=== PATIENT | male | born 1945 | race Asian ===

== ENCOUNTER 2017-01-29 10:53 | Inpatient (IN) | payer OTHER ==
[~2017-01-29] VITALS: Ht 175.3 cm; Wt 63.5 kg
[2017-01-29 11:01] VITALS: BP 122/76
[2017-01-29] MEDS ORDERED: LORATADINE5 MG/5 M3 PO (11:03)
[2017-01-29] MEDS ORDERED: BACLOFEN10 MG ORAL (11:03)
[2017-01-29] MEDS ORDERED: SYMBICORT2 PUFF1 INH (11:03)
[2017-01-29] MEDS ORDERED: TAMSULOSIN HCL0.4 MG ORAL (11:03)
[2017-01-29] MEDS ORDERED: BUPROPION HCL150 M3 ORAL (11:03)
[2017-01-29] MEDS ORDERED: OMEPRAZOLE40 M1 ORAL (11:03)
[2017-01-29] MEDS ORDERED: VITAMIN D400 INTLU ORAL (11:03)
[2017-01-29] MEDS ORDERED: MELOXICAM15 MG PO (11:03)
[2017-01-29] MEDS ORDERED: CREON DR 36,001 EACH PO (11:03)
[2017-01-29] MEDS ORDERED: TRAZODONE HCL150 MG ORAL (11:03)
[2017-01-29] MEDS ORDERED: OMEGA 3 FISH O1 EAC1 PO (11:03)
[2017-01-29] MEDS ORDERED: PROSCAR5 MG ORAL (11:03)
[2017-01-29] MEDS ORDERED: VIAGRA100 MG PO (11:03)
[2017-01-29] MEDS ORDERED: Norco 5mg/325mg tab PO ONE (11:15)
--- NOTE | 2017-01-29 12:35 | Diagnostic Imaging Report ---
Indication: PAIN Technique: 3 views of the left ankle Comparison: None Findings: There is a comminuted fracture of the calcaneus. There is soft tissue swelling. No tibial, fibular, or talar fracture demonstrated. Impression: Positive for calcaneal fracture
--- NOTE | 2017-01-29 12:37 | Diagnostic Imaging Report ---
Indication: PAIN, foot pain, trauma Technique: 3 views left foot Comparison: none Findings: There is a comminuted fracture of the calcaneus. This is minimally displaced. No other acute fractures are demonstrated. Slight deformities of the bases of the third and fourth metatarsals may reflect old injuries. The joint spaces are preserved. Impression: Positive for calcaneal fracture Findings discussed by phone with Dr. Merlos at the time of interpretation.
--- NOTE | 2017-01-29 12:44 | Diagnostic Imaging Report ---
Indications: Trauma, low back pain Technique: Spiral acquisitions obtained through the lumbar spine. Multiplanar reconstructions were generated. No IV contrast utilized. Total dose length product 336 mGycm. CTDIvol(s) mGy. Dose reduction achieved using automated exposure control Comparison: None Findings: There is a wedge compression fracture deformity of the L1 vertebral body, with approximately 30% anterior height loss. Fracture lines through the superior endplate likely indicate acuity. There is also slight posterior retropulsion of the posterior wall. This does not significantly narrow the spinal canal, however. The remainder of the vertebral body heights are preserved. The bony alignment is otherwise normal. No other evidence of acute fracture or dislocation. The disc spaces are preserved. At T12-L1, there is mild right paracentral, subarticular, and intraforaminal disc protrusion, which does not appear to significantly compromise the spinal canal or neural foramina. At L1-2, no significant disc bulge or protrusion, spinal stenosis, or neural foraminal narrowing At L2-3 and L3-4, there is mild circumferential annular bulge which does not significant compromise the spinal canal or neural foramina. At L4-5, there is circumferential annular bulge. This, in combination with facet and ligamentum flavum hypertrophy, results in mild narrowing of the spinal canal there is mild compromise of the left neural foramen due to facet and ligamentum flavum hypertrophy. At L5-S1, there is mild circumferential annular bulge, which does not significantly compromise the spinal canal or neural foramina. The included extraspinal soft tissues are unremarkable. Impression: Positive for L1 vertebral body compression fracture, suspect acute. Slight posterior retropulsion which does not significantly narrow the spinal canal Consider MRI for further evaluation No other acute bony trauma Mild degenerative changes, as detailed on a level by level basis above Findings previously discussed by phone with Dr. Merlos in the emergency room The CT scanner at [facility] is accredited by the [employer] and the scans are performed using protocols designed to limit radiation exposure to as low as reasonably achievable to attain images of sufficient resolution adequate for diagnostic evaluation.
[2017-01-29] MEDS ORDERED: Sodium Chloride 500ML 500 ML IVPB ONE (12:45)
[2017-01-29 13:00] VITALS: BP 112/50
[2017-01-29 13:13] LABS: HEMATOCRIT 41.9 % (42.0-52.0); HEMOGLOBIN 13.9 G/DL (14.2-18.0); MEAN CORPUSCULAR VOLUME 98 FL (80-99); PLATELET COUNT 175 K/UL (150-450); RED BLOOD COUNT 4.26 M/UL (4.70-6.10); RED CELL DISTRIBUTION WIDTH 12.2 % (11.6-14.8); WHITE BLOOD COUNT 11.3 K/UL (4.8-10.8)
[2017-01-29 13:31] LABS: ALANINE AMINOTRANSFERASE 29 U/L (12-78); ALBUMIN 3.7 G/DL (3.4-5.0); ALBUMIN/GLOBULIN RATIO 1.4 (1.0-2.7); ALKALINE PHOSPHATASE 83 U/L (46-116); ANION GAP 7 mmol/L (5-15); ASPARTATE AMINO TRANSFERASE 25 U/L (15-37); BILIRUBIN,TOTAL 0.6 MG/DL (0.2-1.0); BLOOD UREA NITROGEN 20 mg/dL (7-18); CALCIUM 8.8 MG/DL (8.5-10.1); CARBON DIOXIDE 28 MMOL/L (21-32); CHLORIDE 106 MMOL/L (98-107); CREATININE 0.8 MG/DL (0.55-1.30); SODIUM 140 MMOL/L (136-145)
[2017-01-29] MEDS ORDERED: Morphine Sulfate 4mg/ml Inj IVP ONE (13:45)
--- NOTE | 2017-01-29 14:12 | Emergency Room Report ---
History of Present Illness General Chief Complaint: Multiple Trauma/Fall Source: Patient Present Illness HPI 71-year-old male presents ED for violation. Patient brought in by EMS from urgent care. Patient presented with back pain and left ankle pain status post fall down stairs today. Patient denies hitting his head or LOC. Patient presents with lower back pain and left foot and ankle pain. Pain is sharp, 10 out of 10, nonradiating. Patient states he is unable to stand. Denies any other injuries. No aggravating relieving factors. Denies any other associated symptoms Allergies: Coded Allergies: No Known Allergies (Unverified , 01/29/17) Patient History Past Medical History: COPD, psych hx Past Surgical History: none Pertinent Family History: none Social History: Denies: smoking, alcohol use, drug use Immunizations: UTD Reviewed Nursing Documentation: PMH: Agreed, PSxH: Agreed Nursing Documentation-PMH Past Medical History: No History, Except For Hx COPD: Yes Hx Gastrointestinal Problems: No - BPH History Of Psychiatric Problem: Yes - DEPRESSION Hx Seizures: No - PNEUMONIA Review of Systems All Other Systems: negative except mentioned in HPI Physical Exam Vital Signs Date Time Temp Pulse Resp B/P (MAP) Pulse Ox O2 Delivery O2 Flow Rate FiO2 01/29/17 10:45 75 20 115/77 95 Room Air 01/29/17 11:01 97.8 Sp02 EP Interpretation: reviewed, normal General Appearance: alert, GCS 15, non-toxic, mild distress, thin Head: normocephalic Eyes: bilateral eye normal inspection, bilateral eye PERRL ENT: normal ENT inspection Neck: normal inspection, no bony tend Respiratory: normal inspection Cardiovascular #1: normal inspection Gastrointestinal: normal inspection Rectal: deferred Genitourinary: no CVA tenderness, vertebral tenderness Musculoskeletal: decreased range of motion, tender - L foot/ankle Neurologic: alert, oriented x3, responsive, motor strength/tone normal, sensory intact, speech normal Psychiatric: normal inspection Skin: normal inspection Lymphatic: normal inspection Procedures Splinting Splinting : Consent: Verbal Splint: poserior short Pre-Proc Neuro Vasc Exam: normal Post-Proc Neuro Vasc Exam: normal Patient Tolerated: Well Complications: None Medical Decision Making Diagnostic Impression: Primary Impression: Lumbar compression fracture Qualified Codes: S32.010A - Wedge compression fracture of first lumbar vertebra, initial encounter for closed fracture Additional Impression: Calcaneus fracture, left Qualified Codes: S92.002A - Unspecified fracture of left calcaneus, initial encounter for closed fracture ER Course Hospital Course 71-year-old male presents ED complaining of back pain and left foot pain status post fall Differential diagnoses include: fracture, dislocation, contusion Clinical course Patient placed on stretcher. After initial history and physical I ordered pain meds, CT L spine, Xrays of L foot/ankle CT shows L1 wedge compression fx Xray show L calcaneus fx Labs reviewed-mild leukocytosis noted, electrolytes okay, hemoglobin/hematocrit okay Patient placed in left posterior short-leg splint Patient has no focal neurological deficits. However patient is unable to bear weight because of his pain. We will admit the patient. Patient will be admitted to Dr Stephy wilson. I feel this is a highly complex case requiring extensive working including EKG/Rhythm strip, Xray/CT/US, Blood/urine lab work, repeat exams while in ED, and administration of strong opiates/narcotics for pain control, admission to hospital or close patient follow up. Diagnosis - lumbar compression fx, calcaneus fx admitted to floor in serious condition Labs Test 01/29/17 12:55 White Blood Count 11.3 K/UL (4.8-10.8) Red Blood Count 4.26 M/UL (4.70-6.10) Hemoglobin 13.9 G/DL (14.2-18.0) Hematocrit 41.9 % (42.0-52.0) Mean Corpuscular Volume 98 FL (80-99) Mean Corpuscular Hemoglobin 32.6 PG (27.0-31.0) Mean Corpuscular Hemoglobin Concent 33.2 G/DL (32.0-36.0) Red Cell Distribution Width 12.2 % (11.6-14.8) Platelet Count 175 K/UL (150-450) Mean Platelet Volume 8.2 FL (6.5-10.1) Neutrophils (%) (Auto) % (45.0-75.0) Lymphocytes (%) (Auto) % (20.0-45.0) Monocytes (%) (Auto) % (1.0-10.0) Eosinophils (%) (Auto) % (0.0-3.0) Basophils (%) (Auto) % (0.0-2.0) Differential Total Cells Counted 100 Neutrophils % (Manual) 90 % (45-75) Lymphocytes % (Manual) 5 % (20-45) Monocytes % (Manual) 5 % (1-10) Eosinophils % (Manual) 0 % (0-3) Basophils % (Manual) 0 % (0-2) Band Neutrophils 0 % (0-8) Platelet Estimate Adequate Platelet Morphology Normal Red Blood Cell Morphology Normal Sodium Level 140 MMOL/L (136-145) Potassium Level 4.0 MMOL/L (3.5-5.1) Chloride Level 106 MMOL/L (98-107) Carbon Dioxide Level 28 MMOL/L (21-32) Anion Gap 7 mmol/L (5-15) Blood Urea Nitrogen 20 mg/dL (7-18) Creatinine 0.8 MG/DL (0.55-1.30) Estimat Glomerular Filtration Rate mL/min (>60) Glucose Level 101 MG/DL (74-106) Calcium Level 8.8 MG/DL (8.5-10.1) Total Bilirubin 0.6 MG/DL (0.2-1.0) Aspartate Amino Transf (AST/SGOT) 25 U/L (15-37) Alanine Aminotransferase (ALT/SGPT) 29 U/L (12-78) Alkaline Phosphatase 83 U/L (46-116) Total Protein 6.3 G/DL (6.4-8.2) Albumin 3.7 G/DL (3.4-5.0) Globulin 2.6 g/dL Albumin/Globulin Ratio 1.4 (1.0-2.7) Other X-Ray Diagnostic Results Other X-Ray Diagnostic Results #1: X-Ray ordered: L ankle # of Views/Limited Vs Complete: 3 View Indication: Pain EP Interpretation: Yes Interpretation: no dislocation, no soft tissue swelling Impression: Other - L calacaneus fx Electronically Signed by: Electronically signed by Ashok Merlos MD Other X-Ray Diagnostic Results #2: X-Ray ordered: Left foot # of Views/Limited Vs Complete: 3 View Indication: Pain EP Interpretation: Yes Interpretation: no dislocation Impression: Other - L calcaneous fx Electronically Signed by: Electronically signed by Ashok Merlos MD CT/MRI/US Diagnostic Results CT/MRI/US Diagnostic Results : Imaging Test Ordered: L spine Impression L1 compression wedge fx Last Vital Signs Date Time Temp Pulse Resp B/P (MAP) Pulse Ox O2 Delivery O2 Flow Rate FiO2 01/29/17 13:00 98.0 80 15 112/50 98 Room Air Status: improved Disposition: ADMITTED INPATIENT Condition: Serious Referrals: NON PHYSICIAN (PCP) ASHOK MERLOS M.D. Jan 29, 2017 14:12
[2017-01-29 14:33] VITALS: BP 105/57
[2017-01-29 16:00] VITALS: BP 132/73
[2017-01-29] MEDS: Morphine Sulfate 4mg/ml Inj IVP PRN (16:39)
[2017-01-29 20:00] VITALS: BP 113/57
[2017-01-29] MEDS ORDERED: TraZODone 50mg tab ORAL SCH (21:00)
--- NOTE | 2017-01-29 21:15 | History and Physical Report ---
DATE OF ADMISSION: 01/29/2017 CHIEF COMPLAINT: Fall, back pain. HISTORY OF PRESENT ILLNESS: The patient is a 71-year-old male. He has no past medical history. He was walking and fell down the stairs at his apartment. He had severe pain in the left foot and lower back. He presented to the emergency room. On evaluation there, x-ray of the left foot revealed a comminuted fracture of the calcaneus. CT scan of the spine showed a L1 compression fracture that appeared to be acute. He had severe intractable pain. He is now admitted for further evaluation and care. PAST MEDICAL HISTORY: None. PAST SURGICAL HISTORY: None. CURRENT MEDICATIONS: None. FAMILY HISTORY: None. SOCIAL HISTORY: Negative for tobacco, ethanol, or drugs. REVIEW OF SYSTEMS: GENERAL: No fever or chills. HEENT: No headaches or visual changes. CARDIOPULMONARY: No chest pain or shortness of breath. GASTROINTESTINAL: No nausea or vomiting. GENITOURINARY: No urgency or frequency. MUSCULOSKELETAL: No joint pain or swelling except for back pain and leg pain. NEUROLOGIC: No evidence of seizures. PHYSICAL EXAMINATION: VITAL SIGNS: Temperature 98 degrees, blood pressure 132/73, pulse 93, and respirations 20. GENERAL: The patient is a well-developed male, in no apparent distress. HEENT: His head is normocephalic and atraumatic. NECK: Supple. HEART: Regular rate and rhythm. LUNGS: Clear. ABDOMEN: Soft, nontender, and nondistended. EXTREMITIES: Without clubbing or cyanosis. There is a soft splint over the left lower extremity. The patient has exquisite pain to palpation over the lower lumbar spine area. LABORATORY DATA: White count 11, hemoglobin 13, hematocrit 41, platelet count of 175. Sodium 140, potassium 4, and creatinine of 0.8. ASSESSMENT: This is a pleasant male, admitted with mechanical fall down a flight of stairs. He has a calcaneus fracture on the left foot as well as the L1 compression fracture is likely acute. PLAN: Podiatry and spine evaluations. MRI of the lumbar spine. Pain medications. Consider vertebroplasty or kyphoplasty, but we will discuss with the spine beverage sales consultant. Darryl Keyes M.D. DR: Bertha JOB#: [id number] CC:
[2017-01-29] MEDS: BuPROPion SR 150mg tab ORAL SCH (21:17)
[2017-01-29] MEDS: Tamsulosin 0.4mg cap ORAL SCH (21:17)
[2017-01-29] MEDS: Heparin 5000 units/ml inj SUBQ SCH (21:20)
[2017-01-30] VITALS: BP 125/64
[2017-01-30] MEDS: Morphine Sulfate 4mg/ml Inj IVP PRN ×3 (07:14→20:10)
[2017-01-30 08:00] VITALS: BP 113/60
[2017-01-30] MEDS: BuPROPion SR 150mg tab ORAL SCH (09:00)
[2017-01-30] MEDS ORDERED: Meloxicam 15 MG TAB ORAL SCH (09:00)
[2017-01-30] MEDS: Vitamin D 1000 IU Tab ORAL SCH (09:52)
[2017-01-30] MEDS: Norco 10mg/325mg tab ORAL PRN (09:53)
[2017-01-30] MEDS: Heparin 5000 units/ml inj SUBQ SCH ×2 (09:55→20:12)
--- NOTE | 2017-01-30 11:51 | Diagnostic Imaging Report ---
Indication: Back pain Technique: MRI examination of the Lumbar spine was performed in a 1.5 Valery magnet. Sequences obtained include sagittal and axial T1 and T2 fast spin echo, and sagittal STIR. No IV gadolinium was given Comparison: none Findings: There is a horizontally oriented linear focus of T1 hypointensity within the superior plate of L1 associated with mild loss of height and surrounding T2 hyperintense edema. There is minimal retropulsion with indentation of the intraperitoneal thecal sac. There is no compression of the conus medullaris which is seen at this level. The fracture, which is best seen on T1-weighted images does not involve the pedicles although small amount of STIR bone marrow edema does extend into the pedicles. There is notable anterior disc herniation at T12-L1 without diffuse measuring T2 hyperintense signal within the disc. There is also mild posterior disc extrusion at this level abutting the distal cord. L1-2: No central or foraminal stenosis demonstrated. Mild hypertrophy of the facets noted. Minimal retrolisthesis is noted at this level. L2-3: Mild hypertrophy of the facets demonstrated. No central or foraminal stenosis. Her graft34: Hypertrophied facets demonstrated. No central foraminal stenosis. L4-5: Moderate facet hypertrophy and ligamentum flavum redundancy. Mild wide based circumferential disc bulge demonstrated. Mild neural foraminal stenosis and mild to moderate central spinal stenosis and narrowing of the lateral recess demonstrated at this level. L5-S1: Mild facet arthropathy noted. No central or foraminal stenosis. There are innumerable perineural cysts (tarlov cysts) demonstrated within the visualized lower thoracic and lumbar spine. These are seen at the levels of the neural foramina bilaterally at virtually every level including the visualized upper sacral foramina. Impression: Acute to subacute fracture of the superior plate of L1 with mild loss of height. Minimal retropulsion with compression of the anterior thecal sac but without neural or cord impingement. Significant spinal stenosis at L4-5 with narrowing of the central canal, lateral recess and bilateral neural foramen. Moderate facet arthropathy at this level. Multilevel perineural or Tarlov cysts demonstrated within the lower thoracic, lumbar and visualized sacral foramina bilaterally. Please correlate clinically.
[2017-01-30 12:00] VITALS: BP 105/61
--- NOTE | 2017-01-30 14:51 | General Progress Note ---
Assessment/Plan Problem List: (1) Calcaneus fracture, left ICD Codes: S92.002A - Unspecified fracture of left calcaneus, initial encounter for closed fracture SNOMED: 920127306 Qualifiers: Qualified Codes: S92.002A - Unspecified fracture of left calcaneus, initial encounter for closed fracture (2) Lumbar compression fracture ICD Codes: S32.000A - Wedge compression fracture of unspecified lumbar vertebra , initial encounter for closed fracture SNOMED: 580311088 Qualifiers: Qualified Codes: S32.010A - Wedge compression fracture of first lumbar vertebra, initial encounter for closed fracture Status: stable Assessment/Plan spine eval pending- ?kypoplasty await podiatry eval pain rx Subjective ROS Limited/Unobtainable: No Constitutional: Reports: malaise, weakness HEENT: Reports: no symptoms Cardiovascular: Reports: no symptoms Respiratory: Reports: no symptoms Gastrointestinal/Abdominal: Reports: no symptoms Genitourinary: Reports: no symptoms Neurologic/Psychiatric: Reports: no symptoms Endocrine: Reports: no symptoms Hematologic/Lymphatic: Reports: no symptoms Allergies: Coded Allergies: No Known Allergies (Unverified , 01/29/17) All Systems: reviewed and negative except above Subjective back pain the same. no focal weakness or numbness. MRI with acute/subacute fx. Objective Last 24 Hour Vital Signs Date Time Temp Pulse Resp B/P (MAP) Pulse Ox O2 Delivery O2 Flow Rate FiO2 01/30/17 12:00 97.9 79 18 105/61 93 Room Air 01/30/17 10:55 70 16 Room Air 01/30/17 10:50 70 18 95 Room Air 21 01/30/17 08:00 98.2 69 22 113/60 94 Room Air 01/30/17 08:00 98.2 68 22 113/60 94 Room Air 01/30/17 00:00 97.9 87 20 125/64 92 Room Air 01/29/17 20:00 97.9 80 20 113/57 95 Room Air 01/29/17 16:00 97.3 93 20 132/73 97 Room Air Height (Feet): 5 Height (Inches): 9.00 Weight (Pounds): 140 General Appearance: WD/WN, alert Neck: supple Cardiovascular: normal rate, regular rhythm Respiratory/Chest: chest wall non-tender, lungs clear, normal breath sounds, no respiratory distress, no accessory muscle use Abdomen: normal bowel sounds, non tender, soft, no organomegaly, no mass Edema: no edema noted Arm (L), no edema noted Arm (R), no edema noted Leg (L), no edema noted Leg (R), no edema noted Pedal (L), no edema noted Pedal (R), no edema noted Generalized MARY SMITH Jan 30, 2017 14:51
--- NOTE | 2017-01-30 14:51 | General Progress Note ---
Assessment/Plan Problem List: (1) Calcaneus fracture, left ICD Codes: S92.002A - Unspecified fracture of left calcaneus, initial encounter for closed fracture SNOMED: [id number] Qualifiers: Qualified Codes: S92.002A - Unspecified fracture of left calcaneus, initial encounter for closed fracture (2) Lumbar compression fracture ICD Codes: S32.000A - Wedge compression fracture of unspecified lumbar vertebra , initial encounter for closed fracture SNOMED: [id number] Qualifiers: Qualified Codes: S32.010A - Wedge compression fracture of first lumbar vertebra, initial encounter for closed fracture Status: stable Assessment/Plan spine eval pending- ?kypoplasty await podiatry eval pain rx Subjective ROS Limited/Unobtainable: No Constitutional: Reports: malaise, weakness HEENT: Reports: no symptoms Cardiovascular: Reports: no symptoms Respiratory: Reports: no symptoms Gastrointestinal/Abdominal: Reports: no symptoms Genitourinary: Reports: no symptoms Neurologic/Psychiatric: Reports: no symptoms Endocrine: Reports: no symptoms Hematologic/Lymphatic: Reports: no symptoms Allergies: Coded Allergies: No Known Allergies (Unverified , 01/29/17) All Systems: reviewed and negative except above Subjective back pain the same. no focal weakness or numbness. MRI with acute/subacute fx. Objective Last 24 Hour Vital Signs Date Time Temp Pulse Resp B/P (MAP) Pulse Ox O2 Delivery O2 Flow Rate FiO2 01/30/17 12:00 97.9 79 18 105/61 93 Room Air 01/30/17 10:55 70 16 Room Air 01/30/17 10:50 70 18 95 Room Air 21 01/30/17 08:00 98.2 69 22 113/60 94 Room Air 01/30/17 08:00 98.2 68 22 113/60 94 Room Air 01/30/17 00:00 97.9 87 20 125/64 92 Room Air 01/29/17 20:00 97.9 80 20 113/57 95 Room Air 01/29/17 16:00 97.3 93 20 132/73 97 Room Air Height (Feet): 5 Height (Inches): 9.00 Weight (Pounds): 140 General Appearance: WD/WN, alert Neck: supple Cardiovascular: normal rate, regular rhythm Respiratory/Chest: chest wall non-tender, lungs clear, normal breath sounds, no respiratory distress, no accessory muscle use Abdomen: normal bowel sounds, non tender, soft, no organomegaly, no mass Edema: no edema noted Arm (L), no edema noted Arm (R), no edema noted Leg (L), no edema noted Leg (R), no edema noted Pedal (L), no edema noted Pedal (R), no edema noted Generalized MARY SMITH Jan 30, 2017 14:51
--- NOTE | 2017-01-30 14:51 | General Progress Note ---
Assessment/Plan Problem List: (1) Calcaneus fracture, left ICD Codes: S92.002A - Unspecified fracture of left calcaneus, initial encounter for closed fracture SNOMED: [id number] Qualifiers: Qualified Codes: S92.002A - Unspecified fracture of left calcaneus, initial encounter for closed fracture (2) Lumbar compression fracture ICD Codes: S32.000A - Wedge compression fracture of unspecified lumbar vertebra , initial encounter for closed fracture SNOMED: [id number] Qualifiers: Qualified Codes: S32.010A - Wedge compression fracture of first lumbar vertebra, initial encounter for closed fracture Status: stable Assessment/Plan spine eval pending- ?kypoplasty await podiatry eval pain rx Subjective ROS Limited/Unobtainable: No Constitutional: Reports: malaise, weakness HEENT: Reports: no symptoms Cardiovascular: Reports: no symptoms Respiratory: Reports: no symptoms Gastrointestinal/Abdominal: Reports: no symptoms Genitourinary: Reports: no symptoms Neurologic/Psychiatric: Reports: no symptoms Endocrine: Reports: no symptoms Hematologic/Lymphatic: Reports: no symptoms Allergies: Coded Allergies: No Known Allergies (Unverified , 01/29/17) All Systems: reviewed and negative except above Subjective back pain the same. no focal weakness or numbness. MRI with acute/subacute fx. Objective Last 24 Hour Vital Signs Date Time Temp Pulse Resp B/P (MAP) Pulse Ox O2 Delivery O2 Flow Rate FiO2 01/30/17 12:00 97.9 79 18 105/61 93 Room Air 01/30/17 10:55 70 16 Room Air 01/30/17 10:50 70 18 95 Room Air 21 01/30/17 08:00 98.2 69 22 113/60 94 Room Air 01/30/17 08:00 98.2 68 22 113/60 94 Room Air 01/30/17 00:00 97.9 87 20 125/64 92 Room Air 01/29/17 20:00 97.9 80 20 113/57 95 Room Air 01/29/17 16:00 97.3 93 20 132/73 97 Room Air Height (Feet): 5 Height (Inches): 9.00 Weight (Pounds): 140 General Appearance: WD/WN, alert Neck: supple Cardiovascular: normal rate, regular rhythm Respiratory/Chest: chest wall non-tender, lungs clear, normal breath sounds, no respiratory distress, no accessory muscle use Abdomen: normal bowel sounds, non tender, soft, no organomegaly, no mass Edema: no edema noted Arm (L), no edema noted Arm (R), no edema noted Leg (L), no edema noted Leg (R), no edema noted Pedal (L), no edema noted Pedal (R), no edema noted Generalized MARY SMITH Jan 30, 2017 14:51
--- NOTE | 2017-01-30 15:17 | Consultation ---
Consult Note Consult Note dictated Assessment/Plan l1 comp fx l calc fx recommend li kyphoplasty-- pt agreed. discussed with Macedonian speaking navigation teacher WINSTON WINTERS Jan 30, 2017 15:17
--- NOTE | 2017-01-30 15:17 | Consultation ---
Consult Note Consult Note dictated Assessment/Plan l1 comp fx l calc fx recommend li kyphoplasty-- pt agreed. discussed with Kyrgyz speaking browning processor WINSTON WINTERS Jan 30, 2017 15:17
--- NOTE | 2017-01-30 15:17 | Consultation ---
Consult Note Consult Note dictated Assessment/Plan l1 comp fx l calc fx recommend li kyphoplasty-- pt agreed. discussed with Nepali speaking payment collector WINSTON WINTERS Jan 30, 2017 15:17
--- NOTE | 2017-01-30 15:58 | Consultation ---
Consult Note Assessment/Plan A/ Minimally displaced calcaneal fracture left foot Edema P/ Cont immobilization with splint - no surgical intervention at this time Non weight bearing to Left foot with crutches as tolerated. But if he has back pain, will need to use wheelchair Thank you Ward Vieira DPM Jan 30, 2017 15:58
[2017-01-30 16:00] VITALS: BP 117/62
--- NOTE | 2017-01-30 19:15 | Consultation ---
DATE OF CONSULTATION: 01/30/2017 CONSULTING PHYSICIAN: Ward English D.P.M. REQUESTING PHYSICIAN: Darryl Keyes M.D. REASON FOR CONSULTATION: Calcaneal fracture of the left foot. HISTORY OF PRESENT ILLNESS: The patient is a 71-year-old male, who was admitted to [facility] on 01/29/2017 for L1 compression fracture. The patient apparently fell down the stairs and was subsequently brought to the emergency room yesterday. PAST MEDICAL HISTORY: None. PAST SURGICAL HISTORY: None. MEDICATIONS: Per MAR and include Mobic, heparin for DVT prophylaxis, [place], and morphine for pain management. SOCIAL HISTORY: The patient lives at home. Denies any tobacco use. FAMILY HISTORY: Noncontributory. REVIEW OF SYSTEMS: HEENT: The patient denies any headaches, blurred vision, or ringing in the ears. CARDIORESPIRATORY: The patient denies any chest pain or shortness of breath. GENITOURINARY: The patient denies any urgency, frequency, or burning upon urination, or hematuria. GASTROINTESTINAL: The patient denies any constipation, diarrhea, or blood in the stool. PHYSICAL EXAMINATION: VITAL SIGNS: Currently, temperature is 97.9 degrees, pulse is 79, respiration rate is 18, blood pressure is 105/61, and he is saturating 93% on room air. LOWER EXTREMITY PHYSICAL EXAM: Vascular, palpable pedal pulses noted bilaterally. Feet are equally warm. There is pitting edema noted on the left, more substantial on the lateral aspect of the left foot. Ecchymosis is noted. Skin integrity is intact. No blistering is noted on the left. MUSCULOSKELETAL: A 5/5 muscle strength is noted anterolateral and posterior muscle groups of the right lower extremity. The patient is unable to mobilize the left lower extremity due to pain and is guarding. There is no gross deformity noted. NEUROLOGICAL: Grossly intact. LABORATORY AND DIAGNOSTIC DATA: White blood cell count is 11.3, hemoglobin and hematocrit is 13.9 and 41.9, platelet count is 175. Potassium is 4.0, BUN is 20, creatinine is 0.8. Lower extremity imaging, x-ray of the left foot done on 01/29/2017 shows a comminuted fracture of the calcaneus that is minimally displaced. No other acute fractures are demonstrated. Slight deformities at the base of the 3rd and 4th metatarsals, may reflect old injuries. Joint spaces are preserved. Ankle x-ray also done shows same mild calcaneal fracture. No other acute changes to the ankle. ASSESSMENT: 1. Minimally displaced closed fracture of the left calcaneus. 2. Localized edema. PLAN: 1. Continue immobilization with a splint. No surgical intervention at this time. 2. Nonweightbearing to the left foot with crutches as tolerated, but if he has back pain due to his L1 fracture, we will need to use a wheelchair. Thank you for the courtesy of this consultation, Dr. Keyes. Ward English D.P.M. DR: Ling JOB#: [id number] CC:
[2017-01-30 20:00] VITALS: BP 113/69
[2017-01-30] MEDS: Tamsulosin 0.4mg cap ORAL SCH (20:11)
--- NOTE | 2017-01-30 23:30 | Consultation ---
DATE OF CONSULTATION: 01/30/2017 SPINE SURGICAL CONSULTATION REASON FOR CONSULTATION: L1 spinal compression fracture. HISTORY: The patient is a 71-year-old gentleman with a non-syncopal fall down the stairs at his apartment. He developed severe onset of left foot pain and lower back pain. He presented to the emergency room, was diagnosed with an L1 compression fracture as well as a calcaneal fracture. Followup MRI was performed confirming the L1 compression fracture. The patient is awaiting a Podiatry consult for the left calcaneal fracture. PAST MEDICAL HISTORY: None. PAST SURGICAL HISTORY: None. MEDICATIONS: None. ALLERGIES: No known drug allergies. PHYSICAL EXAMINATION: The patient is examined while lying flat in bed. He is focally tender along his back. The skin is intact. Neuro status is intact in both lower extremities with regards to motor strength testing on the right, left side difficult to assess due to a short leg posterior molded splint. Sensation and reflexes are intact on the right side. Left side sensation is intact distally. Posterior molded splint was not removed. IMAGING: MRI and CT of the lumbar spine was obtained confirming an L1 compression fracture 30%. X-rays of the left foot and ankle confirmed comminuted calcaneal fracture. DIAGNOSES: 1. L1 compression fracture. 2. Left calcaneal fracture. PLAN: At this point, due to the multiple nature of his orthopedic injuries, I would recommend kyphoplasty so as to better help with mobilization. He will be nonweightbearing on the left lower extremity, and kyphoplasty will help with his sagittal balance as well as his pain. Due to scheduling conflict, I would recommend the procedure to be performed by Interventional Radiology. I can follow the patient postoperatively. Sylvain Jack Jackson DR: ERICKA JOB#: [id number] CC:
--- NOTE | 2017-01-30 23:45 | Consultation ---
DATE OF CONSULTATION: 01/29/2017 CARDIOLOGY CONSULTATION CONSULTING PHYSICIAN: Naseem Henson M.D. REQUESTING PHYSICIAN: Darryl Keyes M.D. REASON FOR CONSULTATION: Status post fall, evaluate for possible cardiogenic syncope. HISTORY OF PRESENT ILLNESS: This is a 71-year-old Portuguese male with no significant past medical history. He apparently was walking down some stairs and fell in his apartment. He denies any recollection of loss of consciousness and thinks that he tripped. Fall resulted in pain in the lower back and left foot. Imaging in the emergency room confirms comminuted fracture of the left calcaneus and L1 compression fracture. The patient has severe pain. He denies palpitations or chest pain. No shortness of breath. PAST MEDICAL HISTORY: BPH, depression, and bronchospastic lung disease. MEDICATIONS: Prior to admission, none. SOCIAL HISTORY: Negative for smoking, alcohol, or substance abuse. FAMILY HISTORY: Noncontributory. REVIEW OF SYSTEMS: No fevers or chills. No history of visual disturbance or hearing loss. No history of seizure or stroke. No history of diabetes or thyroid disorder. No history of melena, bright red blood per rectum, or kidney dysfunction. No history of asthma. No history of heart attack, rheumatic heart disease, heart murmur, or hypertension. PHYSICAL EXAMINATION: VITAL SIGNS: Afebrile. Blood pressure 132/73, pulse 93, and respirations 20. HEENT: Normocephalic and atraumatic. Conjunctivae pink. Oropharynx clear. NECK: Supple. Jugular venous pressure normal. Carotid upstrokes without delay. No bruits. LUNGS: Clear. CARDIAC: Regular rhythm and rate. Normal S1 and S2 with no murmur, rub, or gallop. ABDOMEN: Soft and nontender. EXTREMITIES: Good pulses. No edema. The left leg has a splint in place. LABORATORY AND DIAGNOSTIC DATA: White count 11 and hemoglobin 13. Sodium 140, potassium 4, and creatinine 0.8. EKG is pending. ASSESSMENT: 1. Probable mechanical fall. 2. Acute lumbar 1 compression fracture. 3. Comminuted fracture of the left calcaneus. PLAN: 1. Check EKG. 2. Monitor volume status. 3. Hydrate as needed. 4. Pain control. 5. Further recommendations will follow depending on clinical course and any signs of underlying structural heart disease. Naseem Henson M.D. DR: KENZIE JOB#: [id number] CC:
[2017-01-31] VITALS: BP 115/70
--- NOTE | 2017-01-31 | Progress Note ---
DATE: 01/30/2017 CARDIOLOGY PROGRESS NOTE SUBJECTIVE: The patient is having pain. Consideration for kyphoplasty ongoing. Podiatry evaluation in progress. OBJECTIVE: VITAL SIGNS: Blood pressure 113/60, pulse 70, and respirations 22. Afebrile. LUNGS: Clear. CARDIAC: Regular. No murmur. ABDOMEN: Soft. EXTREMITIES: No edema. IMPRESSION: 1. Probable mechanical fall. No signs of structural heart disease. 2. Calcaneal fracture. 3. Lumbar compression fracture. 4. Probable osteoporosis. PLAN: 1. Await Orthopedic and Podiatry follow ups. 2. Continue hydration. 3. Pain control. 4. Consider vitamin supplementation and treatment for osteoporosis. 5. Await repeat EKG to assess for possible structural heart disease. 6. We will follow. Naseem Henson M.D. DR: KENZIE JOB#: [id number] CC:
[2017-01-31] MEDS: Morphine Sulfate 4mg/ml Inj IVP PRN ×3 (01:25→15:25)
[2017-01-31 04:00] VITALS: BP 91/61
[2017-01-31 07:39] VITALS: BP 101/68
[2017-01-31] MEDS: Heparin 5000 units/ml inj SUBQ SCH ×2 (08:02→21:00)
[2017-01-31] MEDS: Vitamin D 1000 IU Tab ORAL SCH (08:07)
[2017-01-31 11:50] VITALS: BP 112/66
[2017-01-31 15:28] VITALS: BP 123/68
[2017-01-31] MEDS: Norco 10mg/325mg tab ORAL PRN ×2 (17:05→21:05)
--- NOTE | 2017-01-31 17:18 | General Progress Note ---
Progress Note Progress Note Consulted for possible L1 kyphoplasty for patient with recent L1 compression fracture Chief complaint: Back pain, L1 compression fracture History of present illness: Patient is a 71-year-old male who developed severe back pain after a fall down stairs on 01/29/2017. Patient also suffered a calcaneal fracture that time. Patient states back pain is 7/10.. Pain is essentially central, nonradiating, slightly extends upward. Patient had CT scan on day of injury which demonstrated an L1 compression fracture with very slight posterior retropulsion and a Kummel cleft. MRI on 1030 confirms acute L1 compression fracture, no evidence of significant spinal canal impingement. Past medical history: Significant for history of COPD and depression. : Allergies: No known drug allergies Physical exam: Patient is focally tender at the L1 level. Assessment and plan: Patient appears to be a good candidate for L1 percutaneous kyphoplasty, based on signs, symptoms, and imaging studies.. Procedure, benefits, alternatives, and risks, including not limited to clinical failure, infection, hemorrhage, nerve damage discussed with patient with the aid of a pay station department manager. Indicates his willingness to proceed, understand procedure well be done under general anesthesia Will plan for procedure tomorrow afternoon, 02/01 BRAD MCKEON M.D. Jan 31, 2017 17:18
[2017-01-31 20:00] VITALS: BP 115/73
[2017-01-31] MEDS: Tamsulosin 0.4mg cap ORAL SCH (21:05)
[2017-02-01] VITALS (17 sets, daily range): BP systolic 112–135; BP diastolic 64–82
--- NOTE | 2017-02-01 03:30 | Progress Note ---
DATE: 01/31/2017 CARDIOLOGY PROGRESS NOTE SUBJECTIVE: Pain in the back persists. Kyphoplasty is scheduled for tomorrow. Vitals are stable. No loss of consciousness. OBJECTIVE: VITAL SIGNS: Blood pressure 115/73, pulse 66, respirations 18, and afebrile. NECK: Supple. LUNGS: Clear. CARDIAC: Regular. Normal S1, S2. ABDOMEN: Soft. No edema. DIAGNOSTIC DATA: EKG is pending. IMPRESSION: 1. Mechanical fall. 2. Calcaneal and lumbar compression fracture. 3. Osteoporosis. PLAN: 1. Continue hydration and pain control. 2. Repeat EKG pending. 3. Anticipate kyphoplasty tomorrow under local anesthesia. Naseem Henson M.D. DR: BERONICA JOB#: [id number] CC:
[2017-02-01] MEDS: Morphine Sulfate 4mg/ml Inj IVP PRN ×2 (05:54→18:01)
--- NOTE | 2017-02-01 08:22 | General Progress Note ---
Assessment/Plan Problem List: (1) Calcaneus fracture, left ICD Codes: S92.002A - Unspecified fracture of left calcaneus, initial encounter for closed fracture SNOMED: 506059542 Qualifiers: Qualified Codes: S92.002A - Unspecified fracture of left calcaneus, initial encounter for closed fracture (2) Lumbar compression fracture ICD Codes: S32.000A - Wedge compression fracture of unspecified lumbar vertebra , initial encounter for closed fracture SNOMED: 419897708 Qualifiers: Qualified Codes: S32.010A - Wedge compression fracture of first lumbar vertebra, initial encounter for closed fracture Status: stable, progressing Assessment/Plan check labs cxr and ua kyphoplasty later today if labs xrays ok iv morphine for pain rx Subjective ROS Limited/Unobtainable: No Constitutional: Reports: malaise, weakness HEENT: Reports: no symptoms Cardiovascular: Reports: no symptoms Respiratory: Reports: no symptoms Gastrointestinal/Abdominal: Reports: no symptoms Genitourinary: Reports: no symptoms Neurologic/Psychiatric: Reports: no symptoms Endocrine: Reports: no symptoms Hematologic/Lymphatic: Reports: no symptoms Allergies: Coded Allergies: No Known Allergies (Unverified , 01/29/17) All Systems: reviewed and negative except above Subjective back pain the same. no focal weakness or numbness. MRI with acute/subacute fx. npo for kyphoplasty Objective Last 24 Hour Vital Signs Date Time Temp Pulse Resp B/P (MAP) Pulse Ox O2 Delivery O2 Flow Rate FiO2 02/01/17 04:00 97.7 96 18 112/64 96 Room Air 02/01/17 00:00 97.9 64 18 112/70 96 Room Air 01/31/17 20:00 97.9 66 18 115/73 96 Room Air 01/31/17 15:55 97.2 01/31/17 15:28 97.2 69 20 123/68 97 Room Air 01/31/17 11:50 98.1 76 24 112/66 93 Room Air 01/31/17 08:22 83 18 94 Room Air 21 01/31/17 08:22 86 16 94 Room Air 21 Laboratory Tests 01/31/17 09:25: Prothrombin Time 10.0, Prothromb Time International Ratio 1.0, Activated Partial Thromboplast Time 31 Height (Feet): 5 Height (Inches): 9.00 Weight (Pounds): 140 Objective General Appearance: WD/WN, alert Neck: supple Cardiovascular: normal rate, regular rhythm Respiratory/Chest: chest wall non-tender, lungs clear, normal breath sounds, no respiratory distress, no accessory muscle use Abdomen: normal bowel sounds, non tender, soft, no organomegaly, no mass Edema: no edema noted Arm (L), no edema noted Arm (R), no edema noted Leg (L), no edema noted Leg (R), no edema noted Pedal (L), no edema noted Pedal (R), no edema noted Generalized MARY SMITH Feb 01, 2017 08:22
--- NOTE | 2017-02-01 08:24 | General Progress Note ---
Assessment/Plan Problem List: (1) Calcaneus fracture, left ICD Codes: S92.002A - Unspecified fracture of left calcaneus, initial encounter for closed fracture SNOMED: 746101955 Qualifiers: Qualified Codes: S92.002A - Unspecified fracture of left calcaneus, initial encounter for closed fracture (2) Lumbar compression fracture ICD Codes: S32.000A - Wedge compression fracture of unspecified lumbar vertebra , initial encounter for closed fracture SNOMED: [id number] Qualifiers: Qualified Codes: S32.010A - Wedge compression fracture of first lumbar vertebra, initial encounter for closed fracture Assessment/Plan kyphoplasty by IR pain rx Subjective Date patient seen: Jan 31, 2017 ROS Limited/Unobtainable: No Constitutional: Reports: no symptoms HEENT: Reports: no symptoms Cardiovascular: Reports: no symptoms Respiratory: Reports: no symptoms Gastrointestinal/Abdominal: Reports: no symptoms Genitourinary: Reports: no symptoms Neurologic/Psychiatric: Reports: no symptoms Endocrine: Reports: no symptoms Hematologic/Lymphatic: Reports: no symptoms Allergies: Coded Allergies: No Known Allergies (Unverified , 01/29/17) All Systems: reviewed and negative except above Subjective back pain the same. no focal weakness or numbness. MRI with acute/subacute fx. d/w dr lisa. recommends kyphoplasty but he is not available. recommends kypho [plasty by IR Objective Last 24 Hour Vital Signs Date Time Temp Pulse Resp B/P (MAP) Pulse Ox O2 Delivery O2 Flow Rate FiO2 02/01/17 04:00 97.7 96 18 112/64 96 Room Air 02/01/17 00:00 97.9 64 18 112/70 96 Room Air 01/31/17 20:00 97.9 66 18 115/73 96 Room Air 01/31/17 15:55 97.2 01/31/17 15:28 97.2 69 20 123/68 97 Room Air 01/31/17 11:50 98.1 76 24 112/66 93 Room Air Laboratory Tests 01/31/17 09:25: Prothrombin Time 10.0, Prothromb Time International Ratio 1.0, Activated Partial Thromboplast Time 31 Height (Feet): 5 Height (Inches): 9.00 Weight (Pounds): 140 Objective General Appearance: WD/WN, alert Neck: supple Cardiovascular: normal rate, regular rhythm Respiratory/Chest: chest wall non-tender, lungs clear, normal breath sounds, no respiratory distress, no accessory muscle use Abdomen: normal bowel sounds, non tender, soft, no organomegaly, no mass Edema: no edema noted Arm (L), no edema noted Arm (R), no edema noted Leg (L), no edema noted Leg (R), no edema noted Pedal (L), no edema noted Pedal (R), no edema noted Generalized MARY SMITH Feb 01, 2017 08:24
[2017-02-01] MEDS: Vitamin D 1000 IU Tab ORAL SCH (08:53)
[2017-02-01] MEDS: Heparin 5000 units/ml inj SUBQ SCH ×2 (08:54→21:00)
[2017-02-01 09:19] LABS: BASOPHILS % (AUTO) 0.6 % (0.0-2.0); EOSINOPHILS % (AUTO) 1.8 % (0.0-3.0); HEMATOCRIT 37.9 % (42.0-52.0); HEMOGLOBIN 12.7 G/DL (14.2-18.0); LYMPHOCYTES % (AUTO) 21.2 % (20.0-45.0); MEAN CORPUSCULAR VOLUME 97 FL (80-99); MONOCYTES % (AUTO) 10.9 % (1.0-10.0); NEUTROPHILS % (AUTO) 65.6 % (45.0-75.0); PLATELET COUNT 140 K/UL (150-450); RED BLOOD COUNT 3.92 M/UL (4.70-6.10); WHITE BLOOD COUNT 4.3 K/UL (4.8-10.8)
[2017-02-01 10:43] LABS: APPEARANCE,URINE CLEAR; BILIRUBIN, URINE NEGATIVE (NEGATIVE); COLOR,URINE PALE YELLOW; GLUCOSE, URINE (UA) NEGATIVE (NEGATIVE); KETONES,URINE NEGATIVE (NEGATIVE); LEUKOCYTE ESTERASE ,URINE NEGATIVE (NEGATIVE); NITRITE,URINE NEGATIVE (NEGATIVE); PH,URINE 8 (4.5-8.0); PROTEIN,URINE NEGATIVE (NEGATIVE); UROBILINOGEN,URINE 1 MG/DL (0.0-1.0)
--- NOTE | 2017-02-01 12:04 | Anethesia Preoperative Eval ---
Anesthesia Pre-op PMH/ROS General Date of Evaluation: Feb 01, 2017 Anesthesiologist: Ozzy ASA Score: ASA 2 Mallampati Score Class I : Soft palate, uvula, fauces, pillars visible Class II: Soft palate, uvula, fauces visible Class III: Soft palate, base of uvula visible Class IV: Only hard plate visible Mallampati Classification: Class II Surgeon: Spenser Diagnosis: L1 fracture Surgical Procedure: L1 kyphoplasty Anesthesia History: none Family History: no anesthesia problems Allergies: Coded Allergies: No Known Allergies (Unverified , 01/29/17) Medications: see eMAR Past Medical History Cardiovascular: Denies: HTN, CAD, [place], valve dz, arrhythmia, other Pulmonary: Denies: asthma, COPD, JEFFERY, other Gastrointestinal/Genitourinary: Reports: other - BPH, Denies: GERD, CRI, ESRD Neurologic/Psychiatric: Denies: dementia, CVA, depression/anxiety, TIA, other Endocrine: Denies: DM, hypothyroidism, steroids, other HEENT: Denies: cataract (L), cataract (R), glaucoma, CHITIMACHA (L), CHITIMACHA (R), other Hematology/Immune: Denies: anemia, DVT, bleeding disorder, other Musculoskeletal/Integumentary: Denies: OA, RA, DJD, DDD, edema, other PSxH Narrative: Denies Anesthesia Pre-op Phys. Exam Physician Exam Last Vital Signs Date Time Temp Pulse Resp B/P (MAP) Pulse Ox O2 Delivery O2 Flow Rate FiO2 02/01/17 11:45 97.9 67 19 113/68 97 Room Air 02/01/17 09:14 21 Constitutional: NAD Cardiovascular: RRR Respiratory: CTA Airway Exam Mallampati Score: Class II MO: full ROM: full Anesthesia Pre-op A/P Labs Hematology Test 02/01/17 09:00 White Blood Count 4.3 K/UL (4.8-10.8) L Red Blood Count 3.92 M/UL (4.70-6.10) L Hemoglobin 12.7 G/DL (14.2-18.0) L Hematocrit 37.9 % (42.0-52.0) L Mean Corpuscular Volume 97 FL (80-99) Mean Corpuscular Hemoglobin 32.4 PG (27.0-31.0) H Mean Corpuscular Hemoglobin Concent 33.4 G/DL (32.0-36.0) Red Cell Distribution Width 12.0 % (11.6-14.8) Platelet Count 140 K/UL (150-450) L Mean Platelet Volume 8.2 FL (6.5-10.1) Neutrophils (%) (Auto) 65.6 % (45.0-75.0) Lymphocytes (%) (Auto) 21.2 % (20.0-45.0) Monocytes (%) (Auto) 10.9 % (1.0-10.0) H Eosinophils (%) (Auto) 1.8 % (0.0-3.0) Basophils (%) (Auto) 0.6 % (0.0-2.0) Studies Pre-op Studies: EKG - sr Risk Assessment & Plan Assessment: ASA II Plan: MAC Status Change Before Surgery: No Pre-Antibiotics Drug: N/A JOSSELYN FINLEY M.D. Feb 01, 2017 12:04
--- NOTE | 2017-02-01 12:04 | Anethesia Preoperative Eval ---
Anesthesia Pre-op PMH/ROS General Date of Evaluation: Feb 01, 2017 Anesthesiologist: Ozzy ASA Score: ASA 2 Mallampati Score Class I : Soft palate, uvula, fauces, pillars visible Class II: Soft palate, uvula, fauces visible Class III: Soft palate, base of uvula visible Class IV: Only hard plate visible Mallampati Classification: Class II Surgeon: Spenser Diagnosis: L1 fracture Surgical Procedure: L1 kyphoplasty Anesthesia History: none Family History: no anesthesia problems Allergies: Coded Allergies: No Known Allergies (Unverified , 01/29/17) Medications: see eMAR Past Medical History Cardiovascular: Denies: HTN, CAD, [place], valve dz, arrhythmia, other Pulmonary: Denies: asthma, COPD, JEFFERY, other Gastrointestinal/Genitourinary: Reports: other - BPH, Denies: GERD, CRI, ESRD Neurologic/Psychiatric: Denies: dementia, CVA, depression/anxiety, TIA, other Endocrine: Denies: DM, hypothyroidism, steroids, other HEENT: Denies: cataract (L), cataract (R), glaucoma, TETLIN (L), TETLIN (R), other Hematology/Immune: Denies: anemia, DVT, bleeding disorder, other Musculoskeletal/Integumentary: Denies: OA, RA, DJD, DDD, edema, other PSxH Narrative: Denies Anesthesia Pre-op Phys. Exam Physician Exam Last Vital Signs Date Time Temp Pulse Resp B/P (MAP) Pulse Ox O2 Delivery O2 Flow Rate FiO2 02/01/17 11:45 97.9 67 19 113/68 97 Room Air 02/01/17 09:14 21 Constitutional: NAD Cardiovascular: RRR Respiratory: CTA Airway Exam Mallampati Score: Class II MO: full ROM: full Anesthesia Pre-op A/P Labs Hematology Test 02/01/17 09:00 White Blood Count 4.3 K/UL (4.8-10.8) L Red Blood Count 3.92 M/UL (4.70-6.10) L Hemoglobin 12.7 G/DL (14.2-18.0) L Hematocrit 37.9 % (42.0-52.0) L Mean Corpuscular Volume 97 FL (80-99) Mean Corpuscular Hemoglobin 32.4 PG (27.0-31.0) H Mean Corpuscular Hemoglobin Concent 33.4 G/DL (32.0-36.0) Red Cell Distribution Width 12.0 % (11.6-14.8) Platelet Count 140 K/UL (150-450) L Mean Platelet Volume 8.2 FL (6.5-10.1) Neutrophils (%) (Auto) 65.6 % (45.0-75.0) Lymphocytes (%) (Auto) 21.2 % (20.0-45.0) Monocytes (%) (Auto) 10.9 % (1.0-10.0) H Eosinophils (%) (Auto) 1.8 % (0.0-3.0) Basophils (%) (Auto) 0.6 % (0.0-2.0) Studies Pre-op Studies: EKG - sr Risk Assessment & Plan Assessment: ASA II Plan: MAC Status Change Before Surgery: No Pre-Antibiotics Drug: N/A JOSSELYN FINLEY M.D. Feb 01, 2017 12:04
--- NOTE | 2017-02-01 12:04 | Anethesia Preoperative Eval ---
Anesthesia Pre-op PMH/ROS General Date of Evaluation: Feb 01, 2017 Anesthesiologist: Ozzy ASA Score: ASA 2 Mallampati Score Class I : Soft palate, uvula, fauces, pillars visible Class II: Soft palate, uvula, fauces visible Class III: Soft palate, base of uvula visible Class IV: Only hard plate visible Mallampati Classification: Class II Surgeon: Spenser Diagnosis: L1 fracture Surgical Procedure: L1 kyphoplasty Anesthesia History: none Family History: no anesthesia problems Allergies: Coded Allergies: No Known Allergies (Unverified , 01/29/17) Medications: see eMAR Past Medical History Cardiovascular: Denies: HTN, CAD, [place], valve dz, arrhythmia, other Pulmonary: Denies: asthma, COPD, JEFFERY, other Gastrointestinal/Genitourinary: Reports: other - BPH, Denies: GERD, CRI, ESRD Neurologic/Psychiatric: Denies: dementia, CVA, depression/anxiety, TIA, other Endocrine: Denies: DM, hypothyroidism, steroids, other HEENT: Denies: cataract (L), cataract (R), glaucoma, [place] (L), [place] (R), other Hematology/Immune: Denies: anemia, DVT, bleeding disorder, other Musculoskeletal/Integumentary: Denies: OA, RA, DJD, DDD, edema, other PSxH Narrative: Denies Anesthesia Pre-op Phys. Exam Physician Exam Last Vital Signs Date Time Temp Pulse Resp B/P (MAP) Pulse Ox O2 Delivery O2 Flow Rate FiO2 02/01/17 11:45 97.9 67 19 113/68 97 Room Air 02/01/17 09:14 21 Constitutional: NAD Cardiovascular: RRR Respiratory: CTA Airway Exam Mallampati Score: Class II MO: full ROM: full Anesthesia Pre-op A/P Labs Hematology Test 02/01/17 09:00 White Blood Count 4.3 K/UL (4.8-10.8) L Red Blood Count 3.92 M/UL (4.70-6.10) L Hemoglobin 12.7 G/DL (14.2-18.0) L Hematocrit 37.9 % (42.0-52.0) L Mean Corpuscular Volume 97 FL (80-99) Mean Corpuscular Hemoglobin 32.4 PG (27.0-31.0) H Mean Corpuscular Hemoglobin Concent 33.4 G/DL (32.0-36.0) Red Cell Distribution Width 12.0 % (11.6-14.8) Platelet Count 140 K/UL (150-450) L Mean Platelet Volume 8.2 FL (6.5-10.1) Neutrophils (%) (Auto) 65.6 % (45.0-75.0) Lymphocytes (%) (Auto) 21.2 % (20.0-45.0) Monocytes (%) (Auto) 10.9 % (1.0-10.0) H Eosinophils (%) (Auto) 1.8 % (0.0-3.0) Basophils (%) (Auto) 0.6 % (0.0-2.0) Studies Pre-op Studies: EKG - sr Risk Assessment & Plan Assessment: ASA II Plan: MAC Status Change Before Surgery: No Pre-Antibiotics Drug: N/A JOSSELYN FINLEY M.D. Feb 01, 2017 12:04
--- NOTE | 2017-02-01 12:53 | Pre-Procedure Note/Attestation ---
Pre-Procedure Note/Attestation Complete Prior to Procedure Planned Procedure: not applicable Procedure Narrative: L1 percutaneous kyphoplasty Indications for Procedure Pre-Operative Diagnosis: Painful acute L1 compression fx Attestation I attest that I discussed the nature of the procedure; its benefits; risks and complications; and alternatives (and the risks and benefits of such alternatives ), prior to the procedure, with the patient (or the patient's legal loan representative). I attest that, if there was a reasonable possibility of needing a blood transfusion, the patient (or the patient's legal loan representative) was given the [facility] standardized written summary, pursuant to the Charbel Santos Blood Safety Act ([place] Health and Safety Code # 1645, as amended). I attest that I re-evaluated the patient just prior to the surgery and that there has been no change in the patient's H&P, except as documented below: BRAD MCKEON M.D. Feb 01, 2017 12:53
--- NOTE | 2017-02-01 12:53 | Pre-Procedure Note/Attestation ---
Pre-Procedure Note/Attestation Complete Prior to Procedure Planned Procedure: not applicable Procedure Narrative: L1 percutaneous kyphoplasty Indications for Procedure Pre-Operative Diagnosis: Painful acute L1 compression fx Attestation I attest that I discussed the nature of the procedure; its benefits; risks and complications; and alternatives (and the risks and benefits of such alternatives ), prior to the procedure, with the patient (or the patient's legal factory representative). I attest that, if there was a reasonable possibility of needing a blood transfusion, the patient (or the patient's legal factory representative) was given the [facility] standardized written summary, pursuant to the Charbel Santos Blood Safety Act ([place] Health and Safety Code # 1645, as amended). I attest that I re-evaluated the patient just prior to the surgery and that there has been no change in the patient's H&P, except as documented below: BRAD MCKEON M.D. Feb 01, 2017 12:53
--- NOTE | 2017-02-01 12:53 | Pre-Procedure Note/Attestation ---
Pre-Procedure Note/Attestation Complete Prior to Procedure Planned Procedure: not applicable Procedure Narrative: L1 percutaneous kyphoplasty Indications for Procedure Pre-Operative Diagnosis: Painful acute L1 compression fx Attestation I attest that I discussed the nature of the procedure; its benefits; risks and complications; and alternatives (and the risks and benefits of such alternatives ), prior to the procedure, with the patient (or the patient's legal hobbies and crafts sales representative). I attest that, if there was a reasonable possibility of needing a blood transfusion, the patient (or the patient's legal hobbies and crafts sales representative) was given the [facility] standardized written summary, pursuant to the Charbel Santos Blood Safety Act ([place] Health and Safety Code # 1645, as amended). I attest that I re-evaluated the patient just prior to the surgery and that there has been no change in the patient's H&P, except as documented below: BRAD MCKEON M.D. Feb 01, 2017 12:53
[2017-02-01] MEDS ORDERED: Lidocaine 1% MPF 10mg/ml 5ml ONE (13:00)
[2017-02-01] MEDS ORDERED: Propofol 200mg/20ml IV ONE (13:00)
--- NOTE | 2017-02-01 13:35 | Diagnostic Imaging Report ---
Indication: Cough Technique: One view of the chest Comparison: none Findings: Questionable healing fracture deformity of the right posterior lateral fifth rib is noted. The lungs and pleural space are clear. Heart size is normal. Impression: Equivocal healing right fifth rib fracture deformity No acute cardiopulmonary process
[2017-02-01] MEDS ORDERED: Lidocaine 1% Plain 30 ml INJ ONE (14:00)
[2017-02-01] MEDS ORDERED: Heparin 2000 units/Ns 1000ml INJ ONE (14:00)
--- NOTE | 2017-02-01 14:45 | Immediate Post-Op Evaluation ---
Immediate Post-Op Evalulation Immediate Post-Op Evalulation Procedure: Kyphoplasty L1 Date of Evaluation: Feb 01, 2017 Time of Evaluation: 14:47 IV Fluids: 700 Blood Products: 0 Estimated Blood Loss: 5 Urinary Output: 0 Blood Pressure Systolic: 118 Blood Pressure Diastolic: 80 Pulse Rate: 79 Respiratory Rate: 16 O2 Sat by Pulse Oximetry: 98 Temperature (Fahrenheit): 98 Pain Score (1-10): 0 Nausea: No Vomiting: No Complications 0 Patient Status: awake, reacts, patent, none Hydration Status: adequate Drug: Ancef 1g Given Within 1 Hr of Incision: Yes Time Given: 13:20 JOSSELYN FINLEY M.D. Feb 01, 2017 14:45
--- NOTE | 2017-02-01 14:47 | 48 Hour Post Anesthesia Eval ---
Post Anesthesia Evaluation Procedure: Kyphoplasty L1 Date of Evaluation: Feb 01, 2017 Airway: patent Nausea: No Vomiting: No Pain Intensity: 0 Hydration Status: adequate Cardiopulmonary Status: at baseline Mental Status/LOC: patient returned to baseline Post-Anesthesia Complications: 0 Follow-up care needed: N/A - further care as per primary team JOSSELYN FINLEY M.D. Feb 01, 2017 14:47
--- NOTE | 2017-02-01 16:59 | Brief Operative Note ---
Immediate Post Operative Note Operative Note Pre-op Diagnosis: Painful acute L1 compression fx Procedure: kyphoplasty Post-op Diagnosis: same Post-op Diagnosis: same as pre-op Findings: consistent w/pre-op dx studies Surgeon: Samantha MCKEON Specimen: yes - L1 bone marrow Complications: none Condition: stable Fluids: NONE Implant(s) used?: Yes - bone cement injected BRAD MCKEON M.D. Feb 01, 2017 16:59
[2017-02-01] MEDS: Tamsulosin 0.4mg cap ORAL SCH (21:01)
[2017-02-02] VITALS: BP 114/73
[2017-02-02] MEDS: Morphine Sulfate 4mg/ml Inj IVP PRN (00:55)
[2017-02-02 04:00] VITALS: BP 108/66
[2017-02-02 08:00] VITALS: BP 116/72
[2017-02-02] MEDS: Norco 10mg/325mg tab ORAL PRN (08:08)
[2017-02-02] MEDS: Heparin 5000 units/ml inj SUBQ SCH ×2 (08:09→21:00)
[2017-02-02] MEDS: Vitamin D 1000 IU Tab ORAL SCH (08:09)
--- NOTE | 2017-02-02 09:12 | General Progress Note ---
Assessment/Plan Problem List: (1) Calcaneus fracture, left ICD Codes: S92.002A - Unspecified fracture of left calcaneus, initial encounter for closed fracture SNOMED: 934608059 Qualifiers: Qualified Codes: S92.002A - Unspecified fracture of left calcaneus, initial encounter for closed fracture (2) Lumbar compression fracture ICD Codes: S32.000A - Wedge compression fracture of unspecified lumbar vertebra , initial encounter for closed fracture SNOMED: 456671924 Qualifiers: Qualified Codes: S32.010A - Wedge compression fracture of first lumbar vertebra, initial encounter for closed fracture Status: stable Assessment/Plan aru and snf evals pain rx pt/ot as able Subjective ROS Limited/Unobtainable: No Constitutional: Reports: malaise, weakness HEENT: Reports: no symptoms Cardiovascular: Reports: no symptoms Respiratory: Reports: no symptoms Gastrointestinal/Abdominal: Reports: no symptoms Genitourinary: Reports: no symptoms Neurologic/Psychiatric: Reports: no symptoms Endocrine: Reports: no symptoms Hematologic/Lymphatic: Reports: no symptoms Allergies: Coded Allergies: No Known Allergies (Unverified , 01/29/17) All Systems: reviewed and negative except above Subjective back pain the same. no focal weakness or numbness. MRI with acute/subacute fx. s/p successful kyphoplasty Objective Last 24 Hour Vital Signs Date Time Temp Pulse Resp B/P (MAP) Pulse Ox O2 Delivery O2 Flow Rate FiO2 02/02/17 09:02 83 16 95 Room Air 21 02/02/17 09:02 83 16 95 Room Air 21 02/02/17 08:00 97.2 75 18 116/72 97 02/02/17 04:00 98.1 68 20 108/66 96 Room Air 02/02/17 00:00 98.1 63 20 114/73 98 Room Air 02/01/17 20:00 97.5 64 20 125/66 96 Room Air 02/01/17 18:35 97.8 77 18 122/77 97 Room Air 02/01/17 18:31 97.8 02/01/17 17:35 97.8 80 19 125/76 97 Room Air 02/01/17 16:35 98.0 78 19 122/70 97 Room Air 02/01/17 16:20 98.0 79 19 127/70 95 Room Air 02/01/17 16:00 97.5 81 20 125/69 95 Room Air 02/01/17 15:50 98.2 78 18 128/76 98 Room Air 02/01/17 15:15 98.6 71 16 135/75 97 Room Air 02/01/17 15:00 74 22 126/82 99 Room Air 02/01/17 14:52 77 19 121/80 99 Room Air 02/01/17 14:47 78 19 122/81 99 Room Air 02/01/17 14:45 79 16 98 02/01/17 14:42 98.0 80 26 118/80 99 Room Air 02/01/17 13:24 76 16 6.0 02/01/17 11:45 97.9 67 19 113/68 97 Room Air 02/01/17 09:14 75 16 97 Room Air 21 Intake and Output 02/02/17 02/03/17 19:00 07:00 Intake Total 75 ml Balance 75 ml IV Total 75 ml Laboratory Tests 02/01/17 10:30: Urine Color Pale yellow, Urine Appearance Clear, Urine pH 8, Urine Specific [place] 1.010, Urine Protein Negative, Urine Glucose (UA) Negative, Urine Ketones Negative, Urine Occult Blood 1+H, Urine Nitrite Negative, Urine Bilirubin Negative, Urine Urobilinogen 1H, Urine Leukocyte Esterase Negative, Urine RBC 0-2H, Urine WBC 0, Urine Squamous Epithelial Cells None, Urine Bacteria Occasional Height (Feet): 5 Height (Inches): 9.00 Weight (Pounds): 140 Objective General Appearance: WD/WN, alert Neck: supple Cardiovascular: normal rate, regular rhythm Respiratory/Chest: chest wall non-tender, lungs clear, normal breath sounds, no respiratory distress, no accessory muscle use Abdomen: normal bowel sounds, non tender, soft, no organomegaly, no mass Edema: no edema noted Arm (L), no edema noted Arm (R), no edema noted Leg (L), no edema noted Leg (R), no edema noted Pedal (L), no edema noted Pedal (R), no edema noted Generalized MARY SMITH Feb 02, 2017 09:12
--- NOTE | 2017-02-02 09:49 | Diagnostic Imaging Report ---
Indication: TRAUMA L1 painful compression fracture status post fall Technique: Informed consent obtained prior to commencing the procedure. Procedural timeout performed. Procedure performed under general anesthesia. Total sterile technique, including sterile gloves and hand hygiene, hat, mask, sterile gown, large sterile drape, and preparation with 2% chlorhexidine utilized. With the patient prone, intended percutaneous puncture site over the left L1 pedicle was localized. Local anesthesia with 1% lidocaine Under biplane fluoroscopic guidance, a trocar was inserted through the left L1 pedicle into the posterior aspect of the L1 vertebral body. This was also repeated through the right L1 pedicle. Region trocar, a biopsy specimen was obtained. A drill was inserted through to the trochars created tract for the balloons. The balloon catheter was then inserted through each of the 2 trochars, and each balloon was inflated until an appropriate degree of inflation was achieved. Through the trocar, cement was then injected under biplane fluoroscopic guidance. And an adequate degree of films achieved, as the injection was terminated. The trochars were removed. The patient tolerated the procedure well, without immediate complication. Total fluoroscopy time 150.5 seconds via the portable C-arm, 162 seconds via fixed fluoroscopy unit. Total dose area product 109 dGycm2 from the fixed fluoroscopy unit, 0.53110 mGym2 from the portable C-arm Comparison: Reference made to prior MRI and CT of the lumbar spine Findings: Intraoperative images confirm satisfactory position of trochars, satisfactory balloon inflation, satisfactory filling of the vertebral body. A few millimeters of height holiness was achieved Impression: Apparently successful L1 kyphoplasty, as described
--- NOTE | 2017-02-02 09:49 | Diagnostic Imaging Report ---
Indication: TRAUMA L1 painful compression fracture status post fall Technique: Informed consent obtained prior to commencing the procedure. Procedural timeout performed. Procedure performed under general anesthesia. Total sterile technique, including sterile gloves and hand hygiene, hat, mask, sterile gown, large sterile drape, and preparation with 2% chlorhexidine utilized. With the patient prone, intended percutaneous puncture site over the left L1 pedicle was localized. Local anesthesia with 1% lidocaine Under biplane fluoroscopic guidance, a trocar was inserted through the left L1 pedicle into the posterior aspect of the L1 vertebral body. This was also repeated through the right L1 pedicle. Region trocar, a biopsy specimen was obtained. A drill was inserted through to the trochars created tract for the balloons. The balloon catheter was then inserted through each of the 2 trochars, and each balloon was inflated until an appropriate degree of inflation was achieved. Through the trocar, cement was then injected under biplane fluoroscopic guidance. And an adequate degree of films achieved, as the injection was terminated. The trochars were removed. The patient tolerated the procedure well, without immediate complication. Total fluoroscopy time 150.5 seconds via the portable C-arm, 162 seconds via fixed fluoroscopy unit. Total dose area product 109 dGycm2 from the fixed fluoroscopy unit, 0.49341 mGym2 from the portable C-arm Comparison: Reference made to prior MRI and CT of the lumbar spine Findings: Intraoperative images confirm satisfactory position of trochars, satisfactory balloon inflation, satisfactory filling of the vertebral body. A few millimeters of height jew was achieved Impression: Apparently successful L1 kyphoplasty, as described
--- NOTE | 2017-02-02 09:49 | Diagnostic Imaging Report ---
Indication: TRAUMA L1 painful compression fracture status post fall Technique: Informed consent obtained prior to commencing the procedure. Procedural timeout performed. Procedure performed under general anesthesia. Total sterile technique, including sterile gloves and hand hygiene, hat, mask, sterile gown, large sterile drape, and preparation with 2% chlorhexidine utilized. With the patient prone, intended percutaneous puncture site over the left L1 pedicle was localized. Local anesthesia with 1% lidocaine Under biplane fluoroscopic guidance, a trocar was inserted through the left L1 pedicle into the posterior aspect of the L1 vertebral body. This was also repeated through the right L1 pedicle. Region trocar, a biopsy specimen was obtained. A drill was inserted through to the trochars created tract for the balloons. The balloon catheter was then inserted through each of the 2 trochars, and each balloon was inflated until an appropriate degree of inflation was achieved. Through the trocar, cement was then injected under biplane fluoroscopic guidance. And an adequate degree of films achieved, as the injection was terminated. The trochars were removed. The patient tolerated the procedure well, without immediate complication. Total fluoroscopy time 150.5 seconds via the portable C-arm, 162 seconds via fixed fluoroscopy unit. Total dose area product 109 dGycm2 from the fixed fluoroscopy unit, 0.52386 mGym2 from the portable C-arm Comparison: Reference made to prior MRI and CT of the lumbar spine Findings: Intraoperative images confirm satisfactory position of trochars, satisfactory balloon inflation, satisfactory filling of the vertebral body. A few millimeters of height christian was achieved Impression: Apparently successful L1 kyphoplasty, as described
--- NOTE | 2017-02-02 11:21 | General Progress Note ---
Progress Note Progress Note Pt. states back pain is markedly improved Pt. notified that we will intermittently follow up by phone Further management by primary care team BRAD MCKEON M.D. Feb 02, 2017 11:21
[2017-02-02 11:48] VITALS: BP 110/69
--- NOTE | 2017-02-02 13:33 | Cardiology Report ---
APPROVED REPORT EKG Measurement Heart [id number] [place] [id number] [id number] Sinus rhythm with premature supraventricular complexes Otherwise normal ECG
--- NOTE | 2017-02-02 13:33 | Cardiology Report ---
APPROVED REPORT EKG Measurement Heart [id number] 142P80 [id number] Sinus rhythm with premature supraventricular complexes Otherwise normal ECG
--- NOTE | 2017-02-02 13:33 | Cardiology Report ---
APPROVED REPORT EKG Measurement Heart [id number] [place] 142P80 [id number] Sinus rhythm with premature supraventricular complexes Otherwise normal ECG
[2017-02-02 15:29] VITALS: BP 122/64
[2017-02-02 20:00] VITALS: BP 116/71
[2017-02-02] MEDS: Tamsulosin 0.4mg cap ORAL SCH (20:49)
[2017-02-03] VITALS: BP 100/60
[2017-02-03 04:00] VITALS: BP 118/62
[2017-02-03 08:08] VITALS: BP 107/75
[2017-02-03] MEDS: Vitamin D 1000 IU Tab ORAL SCH (08:34)
[2017-02-03] MEDS: Heparin 5000 units/ml inj SUBQ SCH (08:40)
[2017-02-03] MEDS: Norco 10mg/325mg tab ORAL PRN (08:41)
[2017-02-03] MEDS ORDERED: NORCO 5-325 TA1 EAC1 ORAL (11:18)
[2017-02-03] MEDS ORDERED: PROTONIX40 MG ORAL (11:18)
[2017-02-03] MEDS ORDERED: NORCO 10-325 T1 EACH ORAL (11:18)
[2017-02-03 11:55] VITALS: BP 127/79
--- NOTE | 2017-02-03 14:50 | Cardiology Report ---
APPROVED REPORT EKG Measurement Heart [id number] [place] 142P87 [id number] Normal sinus rhythm Normal ECG
--- NOTE | 2017-02-03 14:50 | Cardiology Report ---
APPROVED REPORT EKG Measurement Heart [id number] [place] 142P87 [id number] Normal sinus rhythm Normal ECG
--- NOTE | 2017-02-03 14:50 | Cardiology Report ---
APPROVED REPORT EKG Measurement Heart [id number] [place] [id number] Normal sinus rhythm Normal ECG
--- NOTE | 2017-02-03 20:30 | Progress Note ---
DATE: 02/01/2017 CARDIOLOGY PROGRESS NOTE LATE ENTRY FOR 02/01/2017 SUBJECTIVE: The patient is status post kyphoplasty today by Interventional Radiology. He still has pain, but is more comfortable. OBJECTIVE: VITAL SIGNS: Stable. LUNGS: Clear. CARDIAC: Regular. ABDOMEN: Soft. EXTREMITIES: No edema. PLAN: We will observe his immediate response to kyphoplasty. Continue with DVT prophylaxis and adequate hydration. Monitor cardiopulmonary status as well. Naseem Henson M.D. DR: CONCEPCION JOB#: [id number] CC:
--- NOTE | 2017-02-03 20:45 | Discharge Summary ---
DATE OF ADMISSION: 01/29/2017 DATE OF DISCHARGE: 02/03/2017 ADMISSION DIAGNOSES: 1. Fall downstairs. 2. Concussion. 3. Left calcaneus foot fracture. 4. L1 compression fracture. 5. Hypertension. DISCHARGE DIAGNOSES: 1. Fall downstairs. 2. Concussion. 3. Left calcaneus foot fracture. 4. L1 compression fracture. 5. Hypertension. HOSPITAL COURSE: The patient is a pleasant male admitted with the fall down the stairs. He sustained a left foot fracture and L1 compression fracture. He had severe pain. Spine evaluation was obtained. It was recommended that the patient undergo kyphoplasty. He underwent kyphoplasty without complication. He was fitted with a splint for his foot by Podiatry. On discharge, the patient was doing well. He will go to a long term facility for short-term rehab. DISCHARGE MEDICATIONS: Please see discharge medication list for discharge medications. DIET: Regular diet. ACTIVITY: Ad-jami. FOLLOWUP: The patient will be followed up in one to two days at long term facility. Darryl Keyes M.D. DR: ALISSA JOB#: [id number] CC:
--- NOTE | 2017-02-03 20:45 | Progress Note ---
DATE: 02/02/2017 CARDIOLOGY PROGRESS NOTE SUBJECTIVE: The patient is postoperative day #1 following successful kyphoplasty. Back pain is unchanged. OBJECTIVE: VITAL SIGNS: Stable. NECK: Supple. LUNGS: Clear. CARDIAC: Regular. Normal S1 and S2. ABDOMEN: Soft. EXTREMITIES: No edema. IMPRESSION: Stable postoperative cardiopulmonary status. Naseem Henson M.D. DR: CONCEPCION JOB#: [id number] CC:
--- NOTE | 2017-02-03 20:45 | Discharge Summary ---
DATE OF ADMISSION: 01/29/2017 DATE OF DISCHARGE: 02/03/2017 ADMISSION DIAGNOSES: 1. Fall downstairs. 2. Concussion. 3. Left calcaneus foot fracture. 4. L1 compression fracture. 5. Hypertension. DISCHARGE DIAGNOSES: 1. Fall downstairs. 2. Concussion. 3. Left calcaneus foot fracture. 4. L1 compression fracture. 5. Hypertension. HOSPITAL COURSE: The patient is a pleasant male admitted with the fall down the stairs. He sustained a left foot fracture and L1 compression fracture. He had severe pain. Spine evaluation was obtained. It was recommended that the patient undergo kyphoplasty. He underwent kyphoplasty without complication. He was fitted with a splint for his foot by Podiatry. On discharge, the patient was doing well. He will go to a snf facility for short-term rehab. DISCHARGE MEDICATIONS: Please see discharge medication list for discharge medications. DIET: Regular diet. ACTIVITY: Ad-jami. FOLLOWUP: The patient will be followed up in one to two days at snf facility. Darryl Keyes M.D. DR: ALISSA JOB#: [id number] CC:
--- NOTE | 2017-02-03 20:45 | Progress Note ---
DATE: 02/03/2017 SUBJECTIVE: Vitals are stable. Pain has improved. The patient has no shortness of breath or chest pain. Exam without change. The patient is status post lumbar compression fracture and kyphoplasty. She will be discharged to a detention facility for continued pain control and mobilization. Naseem Henson M.D. DR: Manas JOB#: [id number] CC:
--- NOTE | 2017-02-03 20:45 | Progress Note ---
DATE: 02/03/2017 SUBJECTIVE: Vitals are stable. Pain has improved. The patient has no shortness of breath or chest pain. Exam without change. The patient is status post lumbar compression fracture and kyphoplasty. She will be discharged to a alf facility for continued pain control and mobilization. Naseem Henson M.D. DR: Manas JOB#: [id number] CC:
--- NOTE | 2017-02-03 20:45 | Progress Note ---
DATE: 02/03/2017 SUBJECTIVE: Vitals are stable. Pain has improved. The patient has no shortness of breath or chest pain. Exam without change. The patient is status post lumbar compression fracture and kyphoplasty. She will be discharged to a [place] [facility] facility for continued pain control and mobilization. Naseem Henson M.D. DR: Maans JOB#: [id number] CC:
--- NOTE | 2017-02-03 20:45 | Discharge Summary ---
DATE OF ADMISSION: 01/29/2017 DATE OF DISCHARGE: 02/03/2017 ADMISSION DIAGNOSES: 1. Fall downstairs. 2. Concussion. 3. Left calcaneus foot fracture. 4. L1 compression fracture. 5. Hypertension. DISCHARGE DIAGNOSES: 1. Fall downstairs. 2. Concussion. 3. Left calcaneus foot fracture. 4. L1 compression fracture. 5. Hypertension. HOSPITAL COURSE: The patient is a pleasant male admitted with the fall down the stairs. He sustained a left foot fracture and L1 compression fracture. He had severe pain. Spine evaluation was obtained. It was recommended that the patient undergo kyphoplasty. He underwent kyphoplasty without complication. He was fitted with a splint for his foot by Podiatry. On discharge, the patient was doing well. He will go to a retirement facility for short-term rehab. DISCHARGE MEDICATIONS: Please see discharge medication list for discharge medications. DIET: Regular diet. ACTIVITY: Ad-jami. FOLLOWUP: The patient will be followed up in one to two days at retirement facility. Darryl Keyes M.D. DR: ALISSA JOB#: [id number] CC:
== END 2017-02-03 15:30 | DRG 478 ==
LOC: EDBD 10:53 → EMR 11:21 → 4E 13:27 → EDBEDREQ 13:35
PROC: 0QB03ZX Excision of Lumbar Vertebra, Percutaneous Approach, Diagnostic (ICD-10-PCS; principal; 2017-02-01)
PROC: 0QU03JZ Supplement Lumbar Vertebra with Synthetic Substitute, Percutaneous Approach (ICD-10-PCS; principal; 2017-02-01)
PROC: 0QS03ZZ Reposition Lumbar Vertebra, Percutaneous Approach (ICD-10-PCS; principal; 2017-02-01)
DX: S92.002A Unspecified fracture of left calcaneus, initial encounter for closed fracture (principal); S32.018A Other fracture of first lumbar vertebra, initial encounter for closed fracture; J44.9 Chronic obstructive pulmonary disease, unspecified; S06.0X9A Concussion with loss of consciousness of unspecified duration, initial encounter; W10.8XXA Fall (on) (from) other stairs and steps, initial encounter; Y93.9 Activity, unspecified; Y92.89 Other specified places as the place of occurrence of the external cause; I10 Essential (primary) hypertension; N40.0 Benign prostatic hyperplasia without lower urinary tract symptoms; F32.9 Major depressive disorder, single episode, unspecified; M81.0 Age-related osteoporosis without current pathological fracture
CPT/HCPCS: 22514; 29515; 36415; 71010; 72131; 72148; 80053; 81003; 85007; 85025; 85610; 85730; 87070; 87181; 87205; 93005; 94640; 99285